=== PATIENT | male | born 1970 | race Caucasian/White ===

== ENCOUNTER 2019-02-11 13:53 | Emergency (ER) | payer OTHER ==
[2019-02-11 14:11] VITALS: RESP 18; TEMP 97.8
--- NOTE | 2019-02-11 15:16 | US ---
EXAMINATION TYPE: US scrotum with doppler. Grayscale and color Doppler Duplex imaging performed of t he scrotum. DATE OF EXAM: 02/11/2019 COMPARISON: NONE CLINICAL HISTORY: Pain. Pt has palpable lump left testicle x 2 days EXAM MEASUREMENTS: TESTICLES: Right Testicle: 4.2 x 2.4 x 3.6 cm Left Testicle: 4.5 x 2.5 x 3.4 cm EPIDIDYMIS HEAD: Right Epididymis: 1.8 cm Left Epididymis: 1.2 cm Grayscale, color Doppler, spectral Doppler imaging performed. Vascular waveforms, color flow is noted to both testes. Presence of hydroceles: Small amount of fluid bilaterally Presence of varicoceles: No In area of pt's palpable abnormality, left lateral scrotum= 1.2 x 0.6 x 1.4 cm hypoechoic lesion wi thin the subcutaneous tissues IMPRESSION: Small bilateral hydroceles. Possible inclusion cyst at the site of patient's palpable abn ormality.
--- NOTE | 2019-02-11 15:40 | ED ---
Male Urogenital HPI - General Chief complaint: Urogenital Stated complaint: Abscess on testicles Time Seen by Provider: 02/11/19 14:23 Source: patient Mode of arrival: ambulatory Limitations: no limitations - History of Present Illness Initial comments: A 48-year-old male who denies past medical history presenting today for chief complaint of bump on left testicle. Patient states the past 2 days he has noticed a lump on his left testicle. He states it is erythematous. Patient was concerned of cancer present for evaluation. Patient denies a fever, chills, night sweats he denies any dysuria, urgency, frequency, hematuria or discharge from the penis. Patient denies concern for STD. Patient denies significant swelling of the testicles. Patient states his wanted to "pop" the area. She states the area is tender to touch she denies tenderness at rest. He denies any nausea or vomiting. Remaining ROS (-), patient denies any recent shortness of breath, chest pain, back pain, abdominal pain, , numbness or tingling, dysuria or hematuria, constipation or diarrhea, headaches or visual changes, or any other complaints. On arrival patient appears well, afebrile. No acute distress. - Related Data Home Medications Medication Instructions Recorded Confirmed Aspirin [Rich Aspirin EC] 81 mg PO DAILY 02/11/19 02/11/19 Previous Rx's Medication Instructions Recorded Cephalexin [Keflex] 500 mg PO Q8HR 5 Days #15 cap 02/11/19 Allergies Allergy/AdvReac Type Severity Reaction Status Date / Time No Known Allergies Allergy Unverified 02/11/19 14:40 Review of Systems ROS Statement: Those systems with pertinent positive or pertinent negative responses have been documented in the HPI. ROS Other: All systems not noted in ROS Statement are negative. Past Medical History Past Medical History: No Reported History History of Any Multi-Drug Resistant Organisms: None Reported Past Surgical History: No Surgical Hx Reported Past Psychological History: No Psychological Hx Reported Smoking Status: Current every day smoker Past Alcohol Use History: Occasional Past Drug Use History: None Reported General Exam - General Exam Comments Initial Comments: General: The patient is awake and alert, in no distress, and does not appear acutely ill. Eye: Pupils are equal, round and reactive to light, extra-ocular movements are intact. No nystagmus. There is normal conjunctiva bilaterally. No signs of icterus. Ears, nose, mouth and throat: There are moist mucous membranes and no oral lesions. Neck: The neck is supple, there is no tenderness or JVD. Cardiovascular: There is a regular rate and rhythm. No murmur, rub or gallop is appreciated. Respiratory: Lungs are clear to auscultation, respirations are non-labored, breath sounds are equal. No wheezes, stridor, rales, or rhonchi. Gastrointestinal: Soft, non-distended, non-tender abdomen without masses or organomegaly noted. There is no rebound or guarding present. No CVA tenderness. Bowel sounds are unremarkable. Musculoskeletal: Normal ROM, no tenderness. Strength 5/5. Sensation intact. Pulses equal bilaterally 2+. Neurological: A&O x 3. CN II-XII intact, There are no obvious motor or sensory deficits. Coordination appears grossly intact. Speech is normal. Skin: Skin is warm and dry and no rashes or lesions are noted. Psychiatric: Cooperative, appropriate mood & affect, normal judgment. Testicular exam;. Vertical lie, no erythema,and swelling, no large masses, crem asterics reflex intact, circumcised. Small raised erythematous fluctuant area superior left teste. No tenderness to palpation of the testicles or epididymis. Tender so patient a fluctuant area. Limitations: no limitations Course Vital Signs 02/11/19 02/11/19 14:07 15:58 Temperature 97.8 F 97.8 F Pulse Rate 88 79 Respiratory 18 18 Rate Blood Pressure 142/101 144/104 O2 Sat by Pulse 97 96 Oximetry Medical Decision Making - Medical Decision Making US revealed possible hyrdrocele, pt denies swelling. PE revealed abscess. I&D performed. Culture obtained. Pt started on abx. At this time feel patient's history and exam findings consistent with diagnosis of abscess, most likely orginated from carbuncle/furuncle. Patient experienced relief with drainage. ST sitting provider as well as all results with patient, at this time feel patient is stable for discharge with outpatient follow-up. Patient is agreeable plan discharge denies questions at this time. Disposition Clinical Impression: Abscess, Hydrocele Disposition: HOME SELF-CARE Condition: Good Instructions (If sedation given, give patient instructions): Abscess Incision and Drainage (ED), Abscess (ED) Additional Instructions: Please use medication as discussed. Please follow-up with family doctor in the next 2 days. Please return to emergency room if the symptoms increase or worsen or for any other concerns. Prescriptions: Cephalexin [Keflex] 500 mg PO Q8HR 5 Days #15 cap Is patient prescribed a controlled substance at d/c from ED?: No Referrals: None,Stated [Primary Care Provider] - 1-2 days [facility] - 1-2 days Gumaro Contreras MD [STAFF PHYSICIAN] - 1-2 days Time of Disposition: 15:40
[2019-02-11 15:59] VITALS: BP 144/104; PULSE 79
--- NOTE | 2019-02-12 05:16 | CDI ---
Documentation Clarification OP Dear Elizabeth VELAZQUEZ, PAC Please do addendum to ED report for I&D procedure documentaion. Thank you, Estuardo Fu Fre[employer] Delivery Driver If you have any question, Please contact caravan park and camping ground manager at [phone] [facility]
--- NOTE | 2019-02-24 16:16 | CDI ---
Physicians Documentation Request Patient: Riky Rivera Account: [id number] Facility: [facility] Location: ED Admit Date: 02/11/2019 Query Send By: Kimberlysinan Desouza Phone #: [phone] Communication Date: 02/24/19 Dear Doctor Marilin/Elizabeth Bradshaw, Documentation Clarification OP Need addendum to ED document that describes the procedure- I & D of scrotum. thank you, coding dept MTDD
== END 2019-02-11 15:59 | disposition home or self-care (01) ==
LOC: EC 13:53
DX: N45.4 Abscess of epididymis or testis (principal); N43.3 Hydrocele, unspecified; F17.200 Nicotine dependence, unspecified, uncomplicated; Z79.82 Long term (current) use of aspirin
CPT/HCPCS: 54700; 76870; 87070; 87205; 93975; 99284

== ENCOUNTER 2019-02-24 11:00 | Emergency (ER) | payer OTHER ==
[2019-02-24 12:29] VITALS: RESP 18
--- NOTE | 2019-02-24 13:20 | US ---
EXAMINATION TYPE: US groin LT DATE OF EXAM: 02/24/2019 COMPARISON: Testicular US dated 02/11/2019 CLINICAL HISTORY: Please get image of soft tissue abscess by scrotum; EC patient with reoccurring pal pable after I& D of palpable on 02/11/19 US here. US findings: at palpable at medial left groin and at lateral scrotal sac a hypoechoic, complex area is redemonstrated and size = 3.2 x 2.5 x 1.0cm. Grayscale and color Doppler imaging performed of the area of patient's clinical abnormality. IMPRESSION: Findings suggest small subcutaneous abscess at the site of patient's palpable abnormalit y
--- NOTE | 2019-02-24 13:48 | ED ---
Male Urogenital HPI - General Chief complaint: Urogenital Stated complaint: Swollen testicile Time Seen by Provider: 02/24/19 12:09 Source: patient Mode of arrival: ambulatory Limitations: no limitations - History of Present Illness Initial comments: 48-year-old male with past medical history of hypertension presents today for chief complaint of left scrotal abscess. Pt had abscess drained last week and was placed on Keflex 4 times a day x 7 days. Patient states he feels it "filled up again" and has been draining with increased pain. Patient denies fever or chills night sweats, erythema of scrotum or scrotal swelling. Patient states when pain persisted today at work he presented for evaluation. Remaining review of systems negative, patient denies any recent shortness of breath, chest pain, back pain, abdominal pain, nausea or vomiting, numbness or tingling, dysuria or hematuria, constipation or diarrhea, headaches or visual changes, or any other complaints. - Related Data Previous Rx's Medication Instructions Recorded Sulfamethox-Tmp 800-160Mg [Bactrim 1 tab PO Q12HR 7 Days #14 tab 02/24/19 DS 800-160 mg] Allergies Allergy/AdvReac Type Severity Reaction Status Date / Time No Known Allergies Allergy Verified 02/24/19 12:07 Review of Systems ROS Statement: Those systems with pertinent positive or pertinent negative responses have been documented in the HPI. ROS Other: All systems not noted in ROS Statement are negative. Past Medical History Past Medical History: No Reported History History of Any Multi-Drug Resistant Organisms: None Reported Past Surgical History: No Surgical Hx Reported Past Psychological History: No Psychological Hx Reported Smoking Status: Current every day smoker Past Alcohol Use History: Occasional Past Drug Use History: None Reported General Exam - General Exam Comments Initial Comments: General: The patient is awake and alert, in no distress, and does not appear acutely ill. Eye: Pupils are equal, round and reactive to light, extra-ocular movements are intact. No nystagmus. There is normal conjunctiva bilaterally. No signs of icterus. Ears, nose, mouth and throat: There are moist mucous membranes and no oral lesions. Neck: The neck is supple, there is no tenderness or JVD. Cardiovascular: There is a regular rate and rhythm. No murmur, rub or gallop is appreciated. Respiratory: Lungs are clear to auscultation, respirations are non-labored, breath sounds are equal. No wheezes, stridor, rales, or rhonchi. Gastrointestinal: Soft, non-distended, non-tender abdomen without masses or organomegaly noted. There is no rebound or guarding present. No CVA tenderness. Bowel sounds are unremarkable. Musculoskeletal: Normal ROM, no tenderness. Strength 5/5. Sensation intact. Pulses equal bilaterally 2+. Neurological: A&O x 3. CN II-XII intact, There are no obvious motor or sensory deficits. Coordination appears grossly intact. Speech is normal. Skin: Skin is warm and dry and no rashes or lesions are noted. Small fluctulant abscess near groing/scrotum at base of hair follicle. Psychiatric: Cooperative, appropriate mood & affect, normal judgment. Limitations: no limitations Course Vital Signs 02/24/19 02/24/19 11:15 14:39 Temperature 97.7 F 98.3 F Pulse Rate 103 H 86 Respiratory 18 18 Rate Blood Pressure 146/100 151/101 O2 Sat by Pulse 98 97 Oximetry Procedures - Incision & Drainage Consent Obtained: verbal consent Indication: abscess Site: scrotum Size (cm): 3 I&D Cleaning Method: Iodine Sterile Field Used?: No Scalpel Used: #11 I&D Drainage Obtained: Pus, Blood Culture Obtained?: No Patient Tolerated Procedure: well, no complications Medical Decision Making - Medical Decision Making A 48-year-old male presenting for abscess. Upon inspection there is abscess of the scrotum appears to be caused by ingrown hair. I & D after ultrasound revealed small abscess <4cm. Pt has no stomach or constitutional symptoms. No leukocytosis. Appears well, nontoxic. Initial antibiotic regimen was keflex patient will be placed on bactrim and given strict return parameters for worsening symptoms or develop a fever, chills or night sweats, or any other concerning signs or symptoms. Pt is agreeable with plan as well as discharge. I discussed case with attending provider Dr. Pa who is agreeable with patient plan of care and discharge at this time. - Lab Data Result diagrams: 02/24/19 13:16 02/24/19 13:16 Lab Results 02/24/19 02/24/19 Range/Units 13:16 13:16 WBC 8.2 (3.8-10.6) k/uL RBC 4.89 (4.30-5.90) m/uL Hgb 14.7 (13.0-17.5) gm/dL Hct 44.5 (39.0-53.0) % MCV 91.1 (80.0-100.0) fL MCH 30.1 (25.0-35.0) pg MCHC 33.1 (31.0-37.0) g/dL RDW 13.3 (11.5-15.5) % Plt Count 220 (150-450) k/uL Neutrophils % 68 % Lymphocytes % 23 % Monocytes % 5 % Eosinophils % 3 % Basophils % 0 % Neutrophils # 5.5 (1.3-7.7) k/uL Lymphocytes # 1.9 (1.0-4.8) k/uL Monocytes # 0.4 (0-1.0) k/uL Eosinophils # 0.2 (0-0.7) k/uL Basophils # 0.0 (0-0.2) k/uL Sodium 138 (137-145) mmol/L Potassium 4.6 (3.5-5.1) mmol/L Chloride 103 (98-107) mmol/L Carbon Dioxide 27 (22-30) mmol/L Anion Gap 8 mmol/L BUN 11 (9-20) mg/dL Creatinine 0.57 L (0.66-1.25) mg/dL Est GFR (CKD-EPI)AfAm >90 (>60 ml/min/1.73 sqM) Est GFR (CKD-EPI)NonAf >90 (>60 ml/min/1.73 sqM) Glucose 81 (74-99) mg/dL Calcium 8.5 (8.4-10.2) mg/dL Total Bilirubin 0.5 (0.2-1.3) mg/dL AST 57 (17-59) U/L ALT 104 H (21-72) U/L Alkaline Phosphatase 75 (38-126) U/L Total Protein 6.6 (6.3-8.2) g/dL Albumin 4.0 (3.5-5.0) g/dL Disposition Clinical Impression: Abscess Disposition: HOME SELF-CARE Condition: Good Instructions (If sedation given, give patient instructions): Abscess Incision and Drainage (ED), Abscess (ED) Additional Instructions: Please use medication as discussed. Please follow-up with urology in next 2-3 days. Please return to emergency room if the symptoms increase or worsen or for any other concerns. Prescriptions: Sulfamethox-Tmp 800-160Mg [Bactrim DS 800-160 mg] 1 tab PO Q12HR 7 Days #14 tab Is patient prescribed a controlled substance at d/c from ED?: No Referrals: None,Stated [Primary Care Provider] - 1-2 days Goyo Sweet MD [STAFF PHYSICIAN] - 1-2 days Time of Disposition: 13:47
[2019-02-24 14:00] LABS: Basophils % (A) 0 %; Eosinophils # (A) 0.2 k/uL (0-0.7); Eosinophils % (A) 3 %; HCT 44.5 % (39.0-53.0); HGB 14.7 gm/dL (13.0-17.5); Lymphocytes # (A) 1.9 k/uL (1.0-4.8); Lymphocytes % (A) 23 %; MCH 30.1 pg (25.0-35.0); MCHC 33.1 g/dL (31.0-37.0); MCV 91.1 fL (80.0-100.0); Mean Platelet Volume 6.7; Monocytes # (A) 0.4 k/uL (0-1.0); Monocytes % (A) 5 %; Neutrophils # (A) 5.5 k/uL (1.3-7.7); Neutrophils % (A) 68 %; Platelet Count 220 k/uL (150-450); RBC 4.89 m/uL (4.30-5.90); RDW 13.3 % (11.5-15.5); WBC 8.2 k/uL (3.8-10.6)
[2019-02-24 14:18] LABS: ALT 104 U/L (21-72); AST 57 U/L (17-59); Alkaline Phosphatase 75 U/L (38-126); Anion Gap 8 mmol/L; Blood Urea Nitrogen 11 mg/dL (9-20); Calcium 8.5 mg/dL (8.4-10.2); Carbon Dioxide 27 mmol/L (22-30); Chloride 103 mmol/L (98-107); Glucose 81 mg/dL (74-99); Potassium 4.6 mmol/L (3.5-5.1); Sodium 138 mmol/L (137-145); Total Bilirubin 0.5 mg/dL (0.2-1.3); Total Protein 6.6 g/dL (6.3-8.2)
[2019-02-24 14:42] VITALS: BP 151/101; PULSE 86; TEMP 98.3
== END 2019-02-24 14:42 | disposition home or self-care (01) ==
LOC: EC 11:00
DX: N49.2 Inflammatory disorders of scrotum (principal); F17.200 Nicotine dependence, unspecified, uncomplicated; Z98.890 Other specified postprocedural states
CPT/HCPCS: 36415; 55100; 80053; 85025; 99284

== ENCOUNTER → 2025-04-30 | Outpatient (CLI) | payer OTHER ==
--- NOTE | 2025-05-05 23:51 | MR ---
EXAMINATION TYPE: MR lumbar spine wo con DATE OF EXAM: 04/30/2025 7:48 PM COMPARISON: None. CLINICAL INDICATION: Male, 54 years old with history of M54.50 LOW BACK PAIN, UNSPECIFIED, Low back p ain into Right side x3 years TECHNIQUE: Multiplanar, multisequence images of the lumbar spine were acquired. IV Contrast: mL (None, if empty) FINDINGS: Cord ends at the L1-L2 level. Disc heights are preserved. There is disc desiccation L4-5 a nd L5-S1. Residual S1-2 disc space is present. L5-S1: No focal disc herniation or significant disc bulge. No spinal canal stenosis. Neural foramen are patent. Facet degenerative changes present. Moderate right foraminal narrowing is present L4-5 and L5-S1. L4-L5: Mild disc bulge is present in the anterior thecal sac contact. No AP spinal canal stenosis is present. Foramina are patent . L3-L4: No focal disc herniation or significant disc bulge. No spinal canal stenosis. Neural foramen are patent. L2-L3: No focal disc herniation or significant disc bulge. No spinal canal stenosis. Neural foramen are patent. L1-L2: No focal disc herniation or significant disc bulge. No spinal canal stenosis. Neural foramen are patent. T12-L1: No focal disc herniation or significant disc bulge. No spinal canal stenosis. Neural forame n are patent. IMPRESSION: 1. Mild disc bulge at L4-5 with mild anterior thecal sac compression. No spinal canal stenosis is pre sent. There is some mild right foraminal narrowing. 2. Degenerative disc changes and disc desiccation L5-S1 results in mild right foraminal stenosis is p resent [facility], , 05/05/2025 11:49 PM
== END | disposition home or self-care (01) ==
LOC: RADMRIMAIN 18:54
PROVIDERS: ATTEND Orthopaedic Surgery
DX: M48.061 Spinal stenosis, lumbar region without neurogenic claudication (principal); M51.370 Other intervertebral disc degeneration, lumbosacral region with discogenic back pain only; M47.817 Spondylosis without myelopathy or radiculopathy, lumbosacral region
CPT/HCPCS: 72148